=== PATIENT | male | born 1990 | race Caucasian/White ===

== ENCOUNTER 2017-05-09 20:29 | Emergency (ER) | payer OTHER ==
--- NOTE | 2017-05-09 20:51 | EDPHY ---
H & P Time Seen by Provider: 05/09/17 20:38 HPI/ROS: CHIEF COMPLAINT: Cough, cold symptoms HISTORY OF PRESENT ILLNESS: Patient is a 27-year-old male who presents to the emergency department with cough and cold symptoms. The patient suffered a food impaction on 05/06/17 while visiting his family in [place]. He was admitted through the ER to endoscopy. During endoscopy the patient became agitated and was not tolerating the sedation. This required intubation by anesthesia to complete the endoscopy procedure. A large chunk of food was removed. There is mild esophageal irritation per report. Patient was ultimately discharged on Monday. He returned home yesterday. Patient states that on Monday he developed cold-like symptoms. He had nasal congestion and runny nose. He developed a nonproductive cough. His cough has slightly worsened. Patient has no noted shortness of breath. He has mild subjective fever. He denies any significant chest or esophageal discomfort. He has no abdominal pain. No nausea or vomiting. He has tolerated water without difficulty. REVIEW OF SYSTEMS: My complete review of systems is negative except as mentioned in the HPI. Past Medical/Surgical History: Includes food impaction Smoking Status: Former smoker Physical Exam: Vitals noted. Patient was mildly tachycardic at 104. His temperature was elevated at 37 degrees. His blood pressure was also elevated GENERAL: Well-appearing, in no acute distress, alert. HEENT: Eyes normal to inspection, normal pharynx, no signs of dehydration. No signs of obstruction or bleeding. NECK: No thyromegaly, no lymphadenopathy, supple. No stridor RESPIRATORY: Clear to auscultation bilaterally, no rales, rhonchi or wheezing. Normal CVS: Regular rate and rhythm, no rubs, murmurs, or gallops. ABDOMEN: Soft, nontender, nondistended, no organomegaly. Benign BACK: Normal to inspection, no CVA tenderness. SKIN: Normal color, no rash, warm, dry. No pallor. EXTREMITIES: No pedal edema, no calf tenderness, no Homans sign or cords, no joint swelling. NEURO/PSYCH: Alert and oriented, normal mood and affect, normal motor sensory exam. Constitutional: Initial Vital Signs Temperature (C) 37.8 C 05/09/17 20:38 Heart Rate 104 H 05/09/17 20:38 Respiratory Rate 20 05/09/17 20:38 Blood Pressure 173/105 H 05/09/17 20:38 O2 Sat (%) 94 05/09/17 20:38 O2 Delivery Mode Room Air Allergies/Adverse Reactions: No Known Allergies Allergy (Unverified 05/09/17 20:37) Home Medications: Medication Instructions Recorded Pantoprazole Sodium 05/09/17 Medical Decision Making - Diagnostics Imaging Results: Imaging Impressions Chest X-Ray 05/09/17 20:46 Impression: No acute thoracic abnormality. Dr. Forrest discussed these findings by telephone with SHELLIE NAVA on at 21:18. ED Course/Re-evaluation: In the emergency department I discussed possible etiologies with the patient. I answered all his questions. A chest x-ray was ordered. Patient has no abdominal discomfort. He has no chest pain. I think perforation is unlikely. I do not feel he needs laboratory studies at this time. I rechecked the patient on multiple occasions while here. He was stable. He had no new respiratory distress. He appeared well on repeat exam. Chest x-ray: Please refer the dictated report. I reviewed the images and discussed the case with Dr. Forrest. The radiologist read the x-ray is normal. I discussed the results with the patient. I answered all his questions. The patient was given strict return precautions if his symptoms worsen. He was given warnings. At this time I do not feel the patient needs antibiotics. Differential Diagnosis: My differential includes but is not limited to community-acquired pneumonia, ventilator acquired pneumonia, aspiration pneumonia, bronchitis, viral illness, esophageal irritation, esophagitis, perforation Departure - Departure Disposition: Home, Routine, Self-Care Clinical Impression: Viral respiratory illness Condition: Good Instructions: Upper Respiratory Infection (ED) Additional Instructions: Your x-ray was negative. However, if your symptoms worsen you need to return immediately to the emergency department for repeat evaluation. Worsening symptoms including increasing cough, shortness of breath, fever, or any other concerns. Referrals: Becky Sharma MD [Medical Doctor] - 5-7 days, call for appt. Rosaura Graves MD [Medical Doctor] - 2-3 days, call for appt.
[2017-05-09 21:36] VITALS: BP 147/93; PULSE 93; RESP 18; TEMP 100.4; O2SAT 95
== END 2017-05-09 21:34 | disposition home or self-care (01) ==
LOC: CED 20:29
DX: B34.9 Viral infection, unspecified (principal); Z87.891 Personal history of nicotine dependence
CPT/HCPCS: 71020-PO